=== PATIENT | male | born 1945 | race Caucasian/White ===

== ENCOUNTER 2020-09-14 06:26 | Day surgery (SDC) | payer MEDICARE, SELFPAY ==
[2020-09-09 14:26] LABS: Absolute Lymphocytes (CBC) 2.1 K/uL (0.7-4.9); Basophils % 0.9 % (0-1.3); Hematocrit 43.9 % (39.6-49.0); Lymphocytes % 25.9 % (15.3-44.8); MPV 8.6 fL (7.6-11.3); RBC Red Blood Cell Count 4.59 M/uL (4.33-5.43)
[2020-09-09 14:31] LABS: Protime INR 0.99
[2020-09-09 14:43] LABS: Potassium 3.7 mmol/L (3.5-5.1)
--- NOTE | 2020-09-09 15:03 | RAD REPORT ---
EXAM DESCRIPTION: RAD - Chest Pa And Lat (2 Views) - 09/09/2020 2:23 pm CLINICAL HISTORY: PRE-OP, patient pending prostate surgery COMPARISON: May 2013 TECHNIQUE: Frontal and lateral views of the chest were obtained. FINDINGS: The lungs are fibrotic and hyperexpanded. Diaphragm is flattened with increased retrostern al space. Calcified granuloma seen in the posterior lower left lung field. No suspicious mass or infi ltrate seen. No hilar or mediastinal mass suspected. Heart size is normal and central vasculature is within normal limits. No pleural effusion or pneumothorax seen. No acute bony finding noted. Accen tuated thoracic kyphosis. No aortic abnormality. IMPRESSION: Prominent COPD progressive from 2012. No acute findings.
--- NOTE | 2020-09-11 14:04 | EKG ---
Test Date: 2020-09-09 Test Time: 13:31:04 Harvesting Contractor: CHERYL MEASUREMENT RESULTS: Intervals: Rate: 57 UT: 200 QRSD: 148 QT: 446 QTc: 434 [place]: P: 85 UT: 200 QRS: 70 T: 75 INTERPRETIVE STATEMENTS: Sinus bradycardia Right bundle branch block Abnormal ECG Compared to ECG 05/31/2013 05:01:05 Right bundle-branch block now present Sinus rhythm no longer present Electronically Signed On 09-11-20 13:59:05 DIAGNOSTIC TECH by Joel Horowitz
--- OUTSIDE RECORDS SUMMARY | 2020-09-14 06:28 | XMS REPORT | Clinical Summary ---
:1945 Author Organization [facility] Address [address] [place] [address] Care Team Providers Name Role Phone Unknownmeds Primary Care Provider Unavailable Allergies No Known Allergies Medications Medication Sig Dispensed Refills Start Date End Date Status fluticasone-salmeterol Inhale 1 puff into 0 Active (ADVAIR) 250-50 the lungs every 12 mcg/dose diskus (twelve) hours. inhaler Active Problems Problem Noted Date Tachyarrhythmia 06/04/2013 Atrial fibrillation 06/04/2013 Encounters Date Type Specialty Care Team Description 05/19/2020 Hospital Encounter Radiology Dioni Wolff Neurokateo rylandne cancer MD Maame (HCC) 05/18/2020 Outside Orders Central Scheduling Dioni Wolff cancer MD Maame ([facility]) (Primary Dx) 05/13/2020 Outside Orders Central Scheduling Rosemary Glasgow cancer MD Arnie ([facility]) (Primary Dx) 05/04/2020 Hospital Encounter Computed Tomography Meseret Glasgow uroendocrine cancer ([facility]); MD Arnie Malignant neoplasm of urinary bladder, u nspecified site ([facility]); 1, [facility] aNtalio Malignant ne oplasm of ureter, unspecified laterality ([facility]) Ct Room 04/26/2020 Outside Orders Central Scheduling Rosemary Glasgow docbertram cancer ([facility]) (Primary Dx); MD Arnie Malignant neopl asm of urinary bladder, unspecified site (HCC); Malignant neopl asm of ureter, unspecified laterality ([facility]) after 09/14/2019 Family History Medical History Relation Name Comments Cancer Mother Relation Name Status Comments Mother Social History Tobacco Use Types Packs/Day Years Used Date Former Smoker Comments: quit atleast 20yrs ago Alcohol Use Drinks/Week oz/Week Comments No Sex Assigned at Date Recorded Not on file Last Filed Vital Signs Not on file Plan of Treatment Health Maintenance Due Date Last Done Comments PNEUMOCOCCAL 65+ YRS (1 of 1 - [id number]) 2008 MEDICARE ANNUAL WELLNESS (YEAR 2 or FIRST YEAR if no 09/25/2013 IPPE) INFLUENZA VACCINE (#1) 2020 Procedures Procedure Name Priority Date/Time Associated Diagnosis Comme nts NM PET/CT GALLIUM Routine 05/19/2020 2:32 Neuroendocrine canc er Results for this 68 SKULL BASE TO PM CDT (HCC) procedure a re in MID-THIGH the results section. CT ABDOMEN/PELVIS Routine 05/04/2020 4:27 Neuroendocrine canc er Results for this WITH & WITHOUT IV PM CDT (HCC) procedure are in CONTRAST Malignant neoplasm of the re sults urinary bladder, section. unspecified site (HCC) Malignant neoplasm of ureter, unspecified laterality (HCC) after 09/14/2019 Results NM PET/CT GALLIUM 68 Skull Base to Mid--Thigh (05/19/2020 2:32 PM CDT) Specimen Narrative Performed At FINAL REPORT [facility] EXAMINATION: DOTATATE-PET/CT, 05/19/2020 10:55 AM CLINICAL HISTORY: Metastatic neuroendocr ine tumor, with recent discovery of a mesenteric mass on outsid e imaging. INDICATION: PET/CT is obtained for subse quent treatment evaluation. COMPARISON: CT of the abdomen and pelvis 05/04/2020 TECHNIQUE: Radiopharmaceutical: Ga-68 Dotatate Administered activity: 5.4] mCi Route of administration: Intravenously v ia the right forearm Localization time: 74 minutes Scan extent: Skull base to the proximal thighs Additional imaging: None CPT Code: 43877 FINDINGS: Head and Neck: There is physiologic dist ribution of radiotracer in the visualized portions of the head and neck. Chest: There are two intensely dotatate- avid periesophageal lymph nodes in the posterior mediastinum. One of these, measuring 0.7 cm (image 161) has an SUV of 15.5, while th e second measuring 1.2 cm (image 168) has an SUV of 36.4. A nodula r focus of dotatate activity is seen along the lower right cardiac ma rgin near the junction of the IVC and right atrium (CT image 143) with a corresponding 0.8 cm soft tissue nodule showing an SUV of 6.8. Sit es of low-grade kizzy activity in the pulmonary ney and mid m ediastinum are likely reactive in nature. There are no focally dotatate-avid pulmonary nodules. Calcified granuloma in the left lower lobe. Abdomen and Pelvis: The regions of mesen teric mass and associated mesenteric and retroperitoneal/periporta l adenopathy seen on the recent CT examination show intense dotat ate uptake. The dominant left mesenteric mass, for example, has an SUV of 36.5. Kizzy masses in the upper retroperitoneum and periportal spa ce show SUV measurements reaching 44.8. Tracer uptake in the hepa tic parenchyma is homogeneous. There is physiologic tracer activity in the spleen, adrenal glands, renal cortex, and bowel. Marked atrophy of the left renal cortex is again seen. Below the ur inary bladder, there is a bilobed focus of fairly intense dotatate activity (SUV = 12.3), corresponding to a lobular soft tissue f ullness in the prostate bed, with impression at the bladder base. Low -grade kizzy activity in the inguinal regions is favored to be reacti ve. Musculoskeletal: An osteosclerotic lesio n measuring 1.0 cm at the base of the left pedicle of the T5 verte bral body shows intense dotatate activity (SUV = 12.3). No other suspicious foci of osseous tracer uptake are seen. IMPRESSION: 1.The mesenteric mass and associated mes enteric, retroperitoneal, and periportal sites of adenopathy are inten sely dotatate-avid, consistent with neuroendocrine malignanc y. In addition, there are two tracer-avid periesophageal nodes and a s mall pericardial nodule in the right, also suspicious for malignanc y. 2.Sclerotic osseous lesion at the base o f the left pedicle of the T5 vertebral body with focal dotatate activ ity. This is most concerning for metastatic neuroendocrine malignancy , but could be related to the prostate/bladder process described below . 3.Lobular mass centered in the prostate bed with impression at the bladder base, showing increased dotatate activity. It is unclear whether this represents prostate hyperpl raz, prostate malignancy, or recurrence of known bladder carcinoma. T he intensity of uptake is less than would be expected for metastat ic neuroendocrine tumor. Signed: Cyndie Stewart MD Report Verified Date/Time: 05/19/2020 16:00:17 Procedure Note Interface, External Ris In - 05/19/2020 4:04 PM CDT FINAL REPORT EXAMINATION: DOTATATE-PET/CT, 05/19/2020 10:55 AM CLINICAL HISTORY: Metastatic neuroendocr ine tumor, with recent discovery of a mesenteric mass on outsid e imaging. INDICATION: PET/CT is obtained for subse quent treatment evaluation. COMPARISON: CT of the abdomen and pelvis 05/04/2020 TECHNIQUE: Radiopharmaceutical: Ga-68 Dotatate Administered activity: 5.4] mCi Route of administration: Intravenously v ia the right forearm Localization time: 74 minutes Scan extent: Skull base to the proximal thighs Additional imaging: None CPT Code: 26387 FINDINGS: Head and Neck: There is physiologic dist ribution of radiotracer in the visualized portions of the head and neck. Chest: There are two intensely dotatate- avid periesophageal lymph nodes in the posterior mediastinum. One of these, measuring 0.7 cm (image 161) has an SUV of 15.5, while th e second measuring 1.2 cm (image 168) has an SUV of 36.4. A nodula r focus of dotatate activity is seen along the lower right cardiac ma rgin near the junction of the IVC and right atrium (CT image 143) with a corresponding 0.8 cm soft tissue nodule showing an SUV of 6.8. Sit es of low-grade kizzy activity in the pulmonary ney and mid m ediastinum are likely reactive in nature. There are no focally dotatate-avid pulmonary nodules. Calcified granuloma in the left lower lobe. Abdomen and Pelvis: The regions of mesen teric mass and associated mesenteric and retroperitoneal/periporta l adenopathy seen on the recent CT examination show intense dotat ate uptake. The dominant left mesenteric mass, for example, has an SUV of 36.5. Kizzy masses in the upper retroperitoneum and periportal spa ce show SUV measurements reaching 44.8. Tracer uptake in the hepa tic parenchyma is homogeneous. There is physiologic tracer activity in the spleen, adrenal glands, renal cortex, and bowel. Marked atrophy of the left renal cortex is again seen. Below the ur inary bladder, there is a bilobed focus of fairly intense dotatate activity (SUV = 12.3), corresponding to a lobular soft tissue f ullness in the prostate bed, with impression at the bladder base. Low -grade kizzy activity in the inguinal regions is favored to be reacti ve. Musculoskeletal: An osteosclerotic lesio n measuring 1.0 cm at the base of the left pedicle of the T5 verte bral body shows intense dotatate activity (SUV = 12.3). No other suspicious foci of osseous tracer uptake are seen. IMPRESSION: 1.The mesenteric mass and associated mes enteric, retroperitoneal, and periportal sites of adenopathy are inten sely dotatate-avid, consistent with neuroendocrine malignanc y. In addition, there are two tracer-avid periesophageal nodes and a s mall pericardial nodule in the right, also suspicious for malignanc y. 2.Sclerotic osseous lesion at the base o f the left pedicle of the T5 vertebral body with focal dotatate activ ity. This is most concerning for metastatic neuroendocrine malignancy , but could be related to the prostate/bladder process described below . 3.Lobular mass centered in the prostate bed with impression at the bladder base, showing increased dotatate activity. It is unclear whether this represents prostate hyperpl raz, prostate malignancy, or recurrence of known bladder carcinoma. T he intensity of uptake is less than would be expected for metastat ic neuroendocrine tumor. Signed: Cyndie Stewart MD Report Verified Date/Time: 05/19/2020 1 6:00:17 Performing Organization Address City/State/Zipcode Phone Number [facility] CT abdomen/pelvis without & with IV contrast (05/04/2020 4:27 PM CDT) Specimen Narrative Performed At FINAL REPORT [facility] CT abdomen and pelvis without and with c ontrast History: Neuroendocrine cancer Comparison: 02/26/2020 Technique: serial axial imaging was perf ormed without and subsequently following up to 100cc of no n ionic iodinated intravenous contrast as per departmental protocol. Multiplanar images are reconstructed and reviewed when indicate d. This CT examination is performed using o ne or more of the following dose reduction techniques: Automated exposure control, adjustment o f the mA and /or kV according to patient size, and/or use of iterative reconstruction technique. Findings: Tiny bibasilar pulmonary nodules are not ed, largest measuring 4 mm in size. These may be slightly increased fr om the prior examination. Unremarkable appearance of pancreas and spleen. Calcified granulomata within the spleen are consistent with pr evious granulomatous disease. Unremarkable appearance of liver and gal lbladder. There is moderate to severe cortical atr ophy of the left kidney, without hydronephrosis. Otherwise, unrem arkable appearance of the adrenal glands, kidneys, ureters, and ur inary bladder. The prostate gland is mildly enlarged. . No small or large bowel obstruction. N o apparent bowel wall thickening. No findings to indicate ac shadi appendicitis. A small amount of free fluid is seen wit hin the pelvis. Previous central mesenteric mass as well as mesenteric and retroperitoneal lymphadenopathy appears similar in size to prior examination. No abdominal aortic aneurysm. No aggressive osseous lesion. Impression: 1. Previous central mesenteric mass and mesenteric/retroperitoneal lymphadenopathy appear similar in size t o prior study. 2. Moderate to severe cortical atrophy o f the left kidney, which could reflect renal artery stenosis. 3. Tiny bibasilar pulmonary nodules, whi ch may be slightly increased in size from the previous examination. R ecommend further evaluation with dedicated CT scan of the chest. Signed: Thomas Gasca MD Report Verified Date/Time: 05/05/2020 08:59:06 Reading Location: [address] Reading Room Procedure Note Interface, External Ris In - 05/05/2020 9:01 AM CDT FINAL REPORT CT abdomen and pelvis without and with c ontrast History: Neuroendocrine cancer Comparison: 02/26/2020 Technique: serial axial imaging was perf ormed without and subsequently following up to 100cc of no n ionic iodinated intravenous contrast as per departmental protocol. Multiplanar images are reconstructed and reviewed when indicate d. This CT examination is performed using o ne or more of the following dose reduction techniques: Automated exposure control, adjustment o f the mA and /or kV according to patient size, and/or use of iterative reconstruction technique. Findings: Tiny bibasilar pulmonary nodules are not ed, largest measuring 4 mm in size. These may be slightly increased fr om the prior examination. Unremarkable appearance of pancreas and spleen. Calcified granulomata within the spleen are consistent with pr evious granulomatous disease. Unremarkable appearance of liver and gal lbladder. There is moderate to severe cortical atr ophy of the left kidney, without hydronephrosis. Otherwise, unrem arkable appearance of the adrenal glands, kidneys, ureters, and ur inary bladder. The prostate gland is mildly enlarged. . No small or large bowel obstruction. No apparent bowel wall thickening. No findings to indicate acu te appendicitis. A small amount of free fluid is seen wit hin the pelvis. Previous central mesenteric mass as well as mesenteric and retroperitoneal lymphadenopathy appears similar in size to prior examination. No abdominal aortic aneurysm. No aggressive osseous lesion. Impression: 1. Previous central mesenteric mass and mesenteric/retroperitoneal lymphadenopathy appear similar in size t o prior study. 2. Moderate to severe cortical atrophy o f the left kidney, which could reflect renal artery stenosis. 3. Tiny bibasilar pulmonary nodules, whi ch may be slightly increased in size from the previous examination. R ecommend further evaluation with dedicated CT scan of the chest. Signed: Thomas Gasca MD Report Verified Date/Time: 05/05/2020 0 8:59:06 Reading Location: [address] Reading Room Performing Organization Address City/State/Zipcode Phone Number GE RIS after 09/14/2019 Insurance Payer Benefit Plan Subscriber ID Effective Phone Address Typ e / Group Dates HUMANA - HUMANA [id number] 2012-[facility] Contracted MEDICARE MGD MEDICARE ADV nt CARE [facility]/MEDICARE [id number] 2019-[facility] - COMPLETE nt MEDICARE MGD [address] ([address]) [address] [id number] Advance Directives For more information, please contact: [phone] Code Status Date Activated Date Inactivated Comments Code ONE 06/04/2013 4:08 PM 06/06/2013 2:49 PM All possib le means of support, including: cardi ac massage, mechanical venti lation, and defibrillation w ill be used to support life. Code ONE 04/07/2013 11:58 AM 04/07/2013 2:27 PM All possib le means of support, including: cardiac massage, mechanical ventilation, and defibrillation will be used to support life.
--- OUTSIDE RECORDS SUMMARY | 2020-09-14 06:28 | XMS REPORT | Continuity of Care Document ---
:1945 Author Organization [facility] t Address [address] [place] [address] Care Team Providers Name Role Phone Unknownmeds Primary Care Physician Unavailable Maame Wolff MD Attending Clinician Pee NOEL Attending Clinician [address] Room Attending Clinician Unavailable Pee NOEL Attending Clinician Kristan MCNAMARA, M Attending Clinician Unavailable Payers Payer Name Policy Type Policy Effective Date Expiration Date Sour ce Number [employer] - MEDICARE [id number] [address] [facility] CAREHUMANA 00:00:00 - Medical MEDICARE Center [id number] 013-PresentMaps Contracted [facility] [id number] [facility] - MEDICARE MGD 00:00:00 - Medical CAREAA/MEDICARE Center [id number] 2019-Present Problems Condition Condition Condition Status Onset Resolution Last Treating Co mments Source Name Details Category Date Date Treatment Clinician Date Tachyarrhy Tachyarrhy Disease Active [facility] Atrial Atrial Disease Active [facility] Debbie kes - on on 00:00: Medical 00 Center Allergies, Adverse Reactions, Alerts This patient has no known allergies or adverse reactions. Family History Family Member Diagnosis Comments Start Date Stop Date Source Natural mother Cancer [facility] Social History Social Habit Start Date Stop Date Quantity Comments Source Sex Assigned At [facility] Alcohol intake 2013-06-05 2013-06-05 Current [facility] - 00:[facility]:00 00:00:00 non-drinker of Medical Ce nter alcohol (finding) Tobacco Comment 2013-04-07 2013-04-07 quit atleast [facility] - 00:00:00 00:00:00 20yrs ago [facility] Center Smoking Status Start Date Stop Date Source Former smoker 2013-06-05 00:00:00 2013-06-05 00:00:00 [facility] Medications Ordered Filled Start Stop Current Ordering Indication Dosage Frequency Signature Comments Components Source Medication Medication Date Date Medication? Clinician (SIG) Name Name fluticasone Yes 1{puff} Inhale 1 [facility] [address] -salmeterol 9-13 puff into [facility] - (ADVAIR) 12:49: the lungs Medi [place] 250-50 26 every 12 Center mcg/dose (twelve) diskus hours. inhaler Procedures Procedure Date / Time Performed Performing Clinician Formerly [facility] e NM PET/CT GALLIUM 68 2020-05-19 14:32:00 Dioni Wolff [facility] S t [facility] - SKULL BASE TO [facility] Center MID-THIGH CT ABDOMEN/PELVIS WITH 2020-05-04 16:27:00 Arnie Glasgow [facility] - & WITHOUT IV CONTRAST Medical Ce nter Plan of Care Planned Activity Planned Date Details Comments Source Future Scheduled 2020-05-25 INFLUENZA VACCINE (#1) [facility] - Test 00:00:00 [code = INFLUENZA Medical Ce nter VACCINE (#1)] Future Scheduled 2013-09-25 MEDICARE ANNUAL [facility] ukes - Test 00:00:00 WELLNESS (YEAR 2 or Medical Center FIRST YEAR if no IPPE) [code = MEDICARE ANNUAL WELLNESS (YEAR 2 or FIRST YEAR if no IPPE)] Future Scheduled 2008 PNEUMOCOCCAL 65+ YRS [facility] - Test 00:00:00 (1 of 1 - Medical Center [id number] PCV13) [code = PNEUMOCOCCAL 65+ YRS (1 of 1 - [id number] PCV13)] Encounters Start End Encounter Admission Attending Care Care Encounter Source Date/Time Date/Time Type Type Clinicians Facility Department ID 2020-04-21 2020-04-21 Office Pee [facility] [id number] 08:49:10 11:27:44 Visit Arnie Lance [id number] 2020-02-26 2020-02-26 Telephone Orin Rushing [id number] 00:00:00 00:00:00 ARTHUR [id number] [facility] [id number] Results Test Description Test Time Test Comments Results Result Sourc e Comments PET/CT, GALLIUM 2020-04-25 Reason for FINAL REPORT PATIENT ID: 68 SKULL BASE TO 6 Exam:->NEUROE [id number] EXAMINATION: MID-THIGH 16:00:00 NDOCRINE DOTATATE-PET/CT, CANCER 05/19/2020 10:55 AM CLINICAL HISTORY: Metastatic neuroendocrine tumor, with recent discovery of a mesenteric mass on outside imaging.INDICATION: PET/CT is obtained for subsequent treatment evaluation.COMPARISON: CT of the abdomen and pelvis 05/04/2020 TECHNIQUE:Radiopharmaceu tical: Ga-68 DotatateAdministered activity: 5.4] mCiRoute of administration: Intravenously via the right forearmLocalization time: 74 minutesScan extent: Skull base to the proximal thighsAdditional imaging: NoneCPT Code: 84191 FINDINGS:Head and Neck: There is physiologic distribution of radiotracer in the visualized portions of the head and neck. Chest: There are two intensely dotatate-avid periesophageal lymph nodes in the posterior mediastinum. One of these, measuring 0.7 cm (image 161) has an SUV of 15.5, while the second measuring 1.2 cm (image 168) has an SUV of 36.4. A nodular focus of dotatate activity is seen along the lower right cardiac margin near the junction of the IVC and right atrium (CT image 143) with a corresponding 0.8 cm soft tissue nodule showing an SUV of 6.8. Sites of low-grade kizzy activity in the pulmonary ney and mid mediastinum are likely reactive in nature. There are no focally dotatate-avid pulmonary nodules. Calcified granuloma in the left lower lobe. Abdomen and Pelvis: The regions of mesenteric mass and associated mesenteric and retroperitoneal/periport al adenopathy seen on the recent CT examination show intense dotatate uptake. The dominant left mesenteric mass, for example, has an SUV of 36.5. Kizzy masses in the upper retroperitoneum and periportal space show SUV measurements reaching 44.8. Tracer uptake in the hepatic parenchyma is homogeneous. There is physiologic tracer activity in the spleen, adrenal glands, renal cortex, and bowel. Marked atrophy of the left renal cortex is again seen. Below the urinary bladder, there is a bilobed focus of fairly intense dotatate activity (SUV = 12.3), corresponding to a lobular soft tissue fullness in the prostate bed, with impression at the bladder base. Low-grade kizzy activity in the inguinal regions is favored to be reactive. Musculoskeletal: An osteosclerotic lesion measuring 1.0 cm at the base of the left pedicle of the T5 vertebral body shows intense dotatate activity (SUV = 12.3). No other suspicious foci of osseous tracer uptake are seen. IMPRESSION: 1.The mesenteric mass and associated mesenteric, retroperitoneal, and periportal sites of adenopathy are intensely dotatate-avid, consistent with neuroendocrine malignancy. In addition, there are two tracer-avid periesophageal nodes and a small pericardial nodule in the right, also suspicious for malignancy.2.Sclerotic osseous lesion at the base of the left pedicle of the T5 vertebral body with focal dotatate activity. This is most concerning for metastatic neuroendocrine malignancy, but could be related to the prostate/bladder process described below.3.Lobular mass centered in the prostate bed with impression at the bladder base, showing increased dotatate activity. It is unclear whether this represents prostate hyperplasia, prostate malignancy, or recurrence of known bladder carcinoma. The intensity of uptake is less than would be expected for metastatic neuroendocrine tumor. Signed: Cyndie Stewart MDReport Verified Date/Time: 05/19/2020 16:00:17 PET/CT 2020-04-25 Interface, External Ris [facility] GALLIUM 68 Skull 6 In - 05/19/2020 4:04 PM [facility] - Base to 16:00:00 CDTFINAL REPORT PATIENT M edical Mid--Thigh ID: [id number] Center EXAMINATION: DOTATATE-PET/CT, 05/19/2020 10:55 AM CLINICAL HISTORY: Metastatic neuroendocrine tumor, with recent discovery of a mesenteric mass on outside imaging.INDICATION: PET/CT is obtained for subsequent treatment evaluation.COMPARISON: CT of the abdomen and pelvis 05/04/2020 TECHNIQUE:Radiopharmaceu tical: Ga-68 DotatateAdministered activity: 5.4] mCiRoute of administration: Intravenously via the right forearmLocalization time: 74 minutesScan extent: Skull base to the proximal thighsAdditional imaging: NoneCPT Code: 19112 FINDINGS:Head and Neck: There is physiologic distribution of radiotracer in the visualized portions of the head and neck. Chest: There are two intensely dotatate-avid periesophageal lymph nodes in the posterior mediastinum. One of these, measuring 0.7 cm (image 161) has an SUV of 15.5, while the second measuring 1.2 cm (image 168) has an SUV of 36.4. A nodular focus of dotatate activity is seen along the lower right cardiac margin near the junction of the IVC and right atrium (CT image 143) with a corresponding 0.8 cm soft tissue nodule showing an SUV of 6.8. Sites of low-grade kizzy activity in the pulmonary ney and mid mediastinum are likely reactive in nature. There are no focally dotatate-avid pulmonary nodules. Calcified granuloma in the left lower lobe. Abdomen and Pelvis: The regions of mesenteric mass and associated mesenteric and retroperitoneal/periport al adenopathy seen on the recent CT examination show intense dotatate uptake. The dominant left mesenteric mass, for example, has an SUV of 36.5. Kizzy masses in the upper retroperitoneum and periportal space show SUV measurements reaching 44.8. Tracer uptake in the hepatic parenchyma is homogeneous. There is physiologic tracer activity in the spleen, adrenal glands, renal cortex, and bowel. Marked atrophy of the left renal cortex is again seen. Below the urinary bladder, there is a bilobed focus of fairly intense dotatate activity (SUV = 12.3), corresponding to a lobular soft tissue fullness in the prostate bed, with impression at the bladder base. Low-grade kizzy activity in the inguinal regions is favored to be reactive. Musculoskeletal: An osteosclerotic lesion measuring 1.0 cm at the base of the left pedicle of the T5 vertebral body shows intense dotatate activity (SUV = 12.3). No other suspicious foci of osseous tracer uptake are seen. IMPRESSION: 1.The mesenteric mass and associated mesenteric, retroperitoneal, and periportal sites of adenopathy are intensely dotatate-avid, consistent with neuroendocrine malignancy. In addition, there are two tracer-avid periesophageal nodes and a small pericardial nodule in the right, also suspicious for malignancy.2.Sclerotic osseous lesion at the base of the left pedicle of the T5 vertebral body with focal dotatate activity. This is most concerning for metastatic neuroendocrine malignancy, but could be related to the prostate/bladder process described below.3.Lobular mass centered in the prostate bed with impression at the bladder base, showing increased dotatate activity. It is unclear whether this represents prostate hyperplasia, prostate malignancy, or recurrence of known bladder carcinoma. The intensity of uptake is less than would be expected for metastatic neuroendocrine tumor. Signed: Cyndie Stewart MDReport Verified Date/Time: 05/19/2020 16:00:17 , ABDOMEN 2020 FINAL REPORT PATIENT ID: [id number] abdomen 08:59:00 and pelvis without and with contrast History: Neuroendocrine cancer Comparison: 02/26/2020 Technique: serial axial imaging was performed without and subsequently following up to 100cc of non ionic iodinated intravenous contrast as per departmental protocol. Multiplanar images are reconstructed and reviewed when indicated. This CT examination is performed using one or more of the following dose reduction techniques: Automated exposure control, adjustment of the mA and /or kV according to patient size, and/or use of iterative reconstruction technique. Findings: Tiny bibasilar pulmonary nodules are noted, largest measuring 4 mm in size. These may be slightly increased from the prior examination. Unremarkable appearance of pancreas and spleen. Calcified granulomata within the spleen are consistent with previous granulomatous disease. Unremarkable appearance of liver and gallbladder. There is moderate to severe cortical atrophy of the left kidney, without hydronephrosis. Otherwise, unremarkable appearance of the adrenal glands, kidneys, ureters, and urinary bladder. The prostate gland is mildly enlarged. . No small or large bowel obstruction. No apparent bowel wall thickening. No findings to indicate acute appendicitis. A small amount of free fluid is seen within the pelvis. Previous central mesenteric mass as well as mesenteric and retroperitoneal lymphadenopathy appears similar in size to prior examination. No abdominal aortic aneurysm. No aggressive osseous lesion. Impression: 1. Previous central mesenteric mass and mesenteric/retroperitone al lymphadenopathy appear similar in size to prior study.2. Moderate to severe cortical atrophy of the left kidney, which could reflect renal artery stenosis.3. Tiny bibasilar pulmonary nodules, which may be slightly increased in size from the previous examination. Recommend further evaluation with dedicated CT scan of the chest. Signed: Thomas Gasca MDReport Verified Date/Time: 05/05/2020 08:59:06 Reading Location: [facility] B1 C013X Ortho Consult Reading Room 2020 Interface, External Ris [facility] abdomen/pelvis 2 In - 05/05/2020 9:01 AM [facility] - without & with 08:59:00 CDTFINAL REPORT PATIENT Medical IV contrast ID: [id number] CT Center abdomen and pelvis without and with contrast History: Neuroendocrine cancer Comparison: 02/26/2020 Technique: serial axial imaging was performed without and subsequently following up to 100cc of non ionic iodinated intravenous contrast as per departmental protocol. Multiplanar images are reconstructed and reviewed when indicated. This CT examination is performed using one or more of the following dose reduction techniques: Automated exposure control, adjustment of the mA and /or kV according to patient size, and/or use of iterative reconstruction technique. Findings: Tiny bibasilar pulmonary nodules are noted, largest measuring 4 mm in size. These may be slightly increased from the prior examination. Unremarkable appearance of pancreas and spleen. Calcified granulomata within the spleen are consistent with previous granulomatous disease. Unremarkable appearance of liver and gallbladder. There is moderate to severe cortical atrophy of the left kidney, without hydronephrosis. Otherwise, unremarkable appearance of the adrenal glands, kidneys, ureters, and urinary bladder. The prostate gland is mildly enlarged. . No small or large bowel obstruction. No apparent bowel wall thickening. No findings to indicate acute appendicitis. A small amount of free fluid is seen within the pelvis. Previous central mesenteric mass as well as mesenteric and retroperitoneal lymphadenopathy appears similar in size to prior examination. No abdominal aortic aneurysm. No aggressive osseous lesion. Impression: 1. Previous central mesenteric mass and mesenteric/retroperitone al lymphadenopathy appear similar in size to prior study.2. Moderate to severe cortical atrophy of the left kidney, which could reflect renal artery stenosis.3. Tiny bibasilar pulmonary nodules, which may be slightly increased in size from the previous examination. Recommend further evaluation with dedicated CT scan of the chest. Signed: Thomas Gasca Verified Date/Time: 05/05/2020 08:59:06 Reading Location: [facility] B1 C013X [facility] Consult Reading Room
[2020-09-14] MEDS ORDERED: CEFAZOLIN/SWI 1gm 1 GM/10 ML SYR ONE (07:03)
[2020-09-14] MEDS ORDERED: Ringers Lactate 1,000 ML IV ONE (07:03)
[2020-09-14] MEDS ORDERED: FENTANYL CITR 100 MCG/2 ML ONE (07:34)
[2020-09-14] MEDS ORDERED: dexAMETHasone 10 MG/ML VIAL ONE (07:34)
[2020-09-14] MEDS ORDERED: propofoL 200 MG/20 ML VIAL IV ONE (07:34)
[2020-09-14] MEDS ORDERED: LIDOCAINE 1% MPF 5 ML VIAL ONE (07:34)
[2020-09-14] MEDS ORDERED: MIDAZOLAM HCL 2 MG/2 ML INJ ONE (07:34)
[2020-09-14] MEDS ORDERED: GLYCOPYRROLATE 0.2 MG/ML SYR ONE (07:58)
[2020-09-14 11:36] VITALS: BP 139/74; TEMP 97.5; O2SAT 96
--- NOTE | 2020-09-20 06:12 | OP ---
Surgeon: ESTEFANIA CONNOR Preoperative Diagnosis: Urethral stricture disease, perineal bulbar. Associated Diagnosis: History of urothelial carcinoma of the bladder. Postoperative Diagnoses: Urethral stricture disease, perineal bulbar. History of urothelial carcino ma of the bladder. Principal Procedure: 1.Cystoscopy. 2.Sequential urethral dilation of perineal bulbar stricture. Additional Procedure: Placement of urethral catheter over a wire. Indication For Procedure: Mr. Moran presented to the Urology Clinic with a history of bladder cance r requiring surveillance cystoscopy. He had a stricture in the remote past about 10 years ago that w as managed at that time. Unfortunately, it had recurred sufficiently to prohibit passage by the flex ible cystoscope in the office; so he was scheduled for operative dilation of the stricture and cystos copic evaluation. Procedure In Detail: The patient was consented in the preoperative holding area before being transfe rred to the operative suite where general anesthesia was induced. He was given Ancef 1 g IV antimicr obial prophylaxis and pneumo boots were provided for DVT prophylaxis. He was placed supine on the op erative table and then in the lithotomy position, padded and secured to the table appropriately. The case was begun using a 22-Belgian rigid cystoscope to traverse the urethra until the point of strictu red narrowing was encountered. This was in the perineal bulbar region and did narrow over the course of about 2-3 cm of length with the most strictured narrowing in the bulbar region. I thus passed a guidewire that came with the sequential urethral dilator set into his bladder with ease and began to dilate the stricture over the wire. I was able to easily dilate from 16-Belgian to 22-Belgian before a ttempting to dilate with the 24-Belgian dilator and meeting significant resistance. As a result, I di scontinued efforts to dilate using the 24-Belgian dilator and performed cystoscopy, leaving the wire i n place. I was able to navigate this time via the urethra and into the bladder, which was irrigated of blood and a small amount of blood clot. After couple of rounds of irrigation, I was able to visua lize the bladder in its entirety, and there were no mucosal lesions, foreign bodies, or stones noted throughout. There was a small degree of posterior erythema in the region of likely trauma from the s equential dilators touching the back of the bladder. The trigone was orthotopic in location and the ureteral orifices were orthotopic with clear urine effluxing. As a result, I then retracted the cyst oscope into the urethra and surveyed the prostatic urethra. There was moderate lateral lobar hypertr ophy with minimal elevation of a median bar without significant intravesical projection. The remaind er of the urethra was significantly dilated at this point and there was no ongoing strictured narrowi ng. As a result, I then attempted to pass the 24-Belgian dilator again over the wire to maximally dil ate the area of the urethra, but again it would not pass with ease; and in fact, I visualized the reg ion after attempting to pass a 24-Belgian dilator and there was a false passage in the posterior prost atic urethra that had been created. As a result, I passed the 20-Belgian [place] tipped Pascual cathete r over the wire into his bladder with ease and placed 10 cc of sterile water into the balloon. I the n irrigated his bladder copiously using saline, and there were no clots noted. I thus discontinued t he case, taking him out of the lithotomy position after performing a rectal exam to ensure no rectal injury. When no blood was noted on the tip of the finger and no obvious hole in the rectum from the posterior false passage, I then discontinued the case. The patient's catheter was connected to a Sta tLock and to a floor bag, and he was awakened from general anesthesia. He was then transferred to a stretcher and then to the recovery room in good condition. Complications: Posterior prostatic urethral false passage. Discharge Disposition: We will continue him on Augmentin 875 mg once daily for prophylaxis while hea ling of the strictured region and a false passage has an opportunity to take place. The catheter марина l remain in place for 14 days and then he is familiar and wishes to remove the catheter himself at [facility]. He will then continue the Augmentin for at least 24-48 hours after the catheter is removed, and then should seek follow up in the Urology Clinic. Subsequent evaluation will depend on his history o f bladder cancer and whether he is now on annual surveillance versus any more frequent surveillance b ased on that need. Subsequent evaluation for this stricture disease would likely be in 3-6 months unless he becomes symptomatic of any sign of obstruction. LOWELL/MODL Voice ID: [id number] Report ID: [id number]
== END 2020-09-14 09:45 | disposition home or self-care (01) ==
LOC: OR 06:26
PROVIDERS: ATTEND Urology
PROC: 0T7D8DZ Dilation of Urethra with Intraluminal Device, Via Natural or Artificial Opening Endoscopic (ICD-10-PCS; principal; 2020-09-14 07:30)
DX: N35.912 Unspecified bulbous urethral stricture, male (principal); Z85.51 Personal history of malignant neoplasm of bladder; Z20.828 Contact with and (suspected) exposure to other viral communicable diseases; N36.5 Urethral false passage; N40.3 Nodular prostate with lower urinary tract symptoms; N40.1 Benign prostatic hyperplasia with lower urinary tract symptoms; I10 Essential (primary) hypertension; J44.9 Chronic obstructive pulmonary disease, unspecified; C7A.8 Other malignant neuroendocrine tumors; C7B.8 Other secondary neuroendocrine tumors
CPT/HCPCS: 93005; 87088; 85025; 87086; 80048; 36415; 85610; 85730; 71046; 52281; U0002; J2704; J2250; J3010; J1100; J0690; J7120; 84153